=== PATIENT | female | born 1965 | race Caucasian/White ===

== ENCOUNTER → 2019-05-16 14:40 | Outpatient (BNVA) | payer MEDICARE, MEDICAID, SELFPAY | PROVIDERS: Family Provider Physician Assistant Medical; Visit Provider Nurse Practitioner | DX: F33.2 Major depressive disorder, recurrent severe without psychotic features (principal); G47.30 Sleep apnea, unspecified | CPT/HCPCS: 99214 ==

== ENCOUNTER → 2019-07-17 08:19 | Outpatient (BNVA) | payer MEDICARE, MEDICAID, SELFPAY | PROVIDERS: Family Provider Physician Assistant Medical; Visit Provider Nurse Practitioner | DX: F33.2 Major depressive disorder, recurrent severe without psychotic features (principal); G47.30 Sleep apnea, unspecified; F41.1 Generalized anxiety disorder | CPT/HCPCS: 99213 ==

== ENCOUNTER → 2019-07-20 09:20 | Outpatient (BNVA) | payer MEDICARE, MEDICAID, SELFPAY | PROVIDERS: Family Provider Physician Assistant Medical; Visit Provider Social Worker | DX: F33.2 Major depressive disorder, recurrent severe without psychotic features (principal) | CPT/HCPCS: 90791 ==

== ENCOUNTER 2019-09-14 18:10 | Emergency (ER) | payer MEDICARE, MEDICAID, SELFPAY ==
[2019-09-14 18:15] VITALS: PULSE 74; RESP 14; TEMP 35.9; O2SAT 99; BMI 40.7
--- NOTE | 2019-09-14 21:05 | ED_ITS ---
HPI - Dental/Oral General: Chief complaint: Dental/Oral Stated complaint: dental pain Time Seen by Provider: 09/14/19 21:05 History of Present Illness: HPI Narrative: Patient is a 54-year-old female who comes to the ED with dental pain. Patient had dental surgery and had a tooth removed several days ago. Patient currently has a prescription of hydrocodone prescribed by his surgeon and she was also instructed to take ibuprofen as well to help with pain. She says that the hydrocodone and ibuprofen are not addressing the pain enough. She does complain of having some mild nausea. Tooth was removed was in a #17 or #18 in the left lower mandible. She currently rates pain a 10 out of 10. Associated symptoms: Denies fever(s) or odynophagia Review of Systems Const: Denies: fever(s), chills or fatigue Eyes: Denies: change in vision or eye discomfort ENMT: Reports: dental pain; Denies: throat pain, odynophagia, nasal discharge or nasal congestion Card: Denies: chest pain, palpitations, edema, swelling of feet/ankles, dyspnea on exertion or orthopnea Resp: Denies: dyspnea, productive cough or non-productive cough GI: Denies: abdominal pain, nausea, vomiting, diarrhea, constipation or hemat ochezia : Denies: flank pain, dysuria or hematuria Musc: Denies: neck pain, back pain or extremity swelling Skin/Breast: Denies: rash or new lesions Neuro: Denies: headache(s), numbness in extremities or weakness in extremities PFS ED PFSH: Medical History Major depressive disorder, recurrent severe without psychotic features Sleep apnea, unspecified Social History Smoking and tobacco status: never smoked Current gender identity: Female Physical Exam Const: COMMON NORMALS: patient oriented x3 and alert GENERAL APPEARANCE: cooperative and comfortable HENMT: COMMON NORMALS: normocephalic HEAD & SCALP: normocephalic FACE & SINUS: normal facial exam; no edema MOUTH: Normal oral and palatal mucosa present TEETH & GINGIVA: Yes other (Area where tooth was removed had some gum swelling but no erythema or drainage.) THROAT: posterior oropharynx normal and uvula midline Eye: COMMON NORMALS: Equal, round and reactive pupils present PUPIL: Yes Equal, round and reactive pupils present Neck/C-Spine: COMMON NORMALS: supple GENERAL: Yes normal visual inspection Resp: COMMON NORMALS: normal respiratory effort, No retractions, No use of accessory muscles and clear to auscultation bilaterally AUSCULTATION: clear to auscultation bilaterally Cardio: COMMON NORMALS: regular rate, regular rhythm, S1 normal heart sound present, S2 normal heart sound present, No gallops present (Cardio), No clicks present (Cardio), No murmurs present (Cardio) and Peripheral pulses 2+ throughout RATE: regular rate RHYTHM: regular rhythm HEART SOUNDS: S1 normal heart sound present and S2 normal heart sound present PERIPHERAL PULSES: Peripheral pulses 2+ throughout GI: COMMON NORMALS: Normal to inspection, nondistended, normoactive bowel sounds present, Soft to palpation, non-tender and no masses PALPATION: Yes Soft to palpation : COMMON NORMALS: Yes no CVA tenderness BLADDER/KIDNEY EXAM: Yes no CVA tenderness Back/Pelvis: COMMON NORMALS: no CVA tenderness Extremity: COMMON NORMALS: normal to inspection Neuro: COMMON NORMALS: patient oriented x3 and moves all extremities SENSORIUM/ORIENTATION: Yes alert Skin: GENERAL SKIN EXAM: dry skin Course Vital Signs: Vital signs: Vital Signs Temperature 96.7 F L 09/14/19 18:15 Pulse Rate 81 09/14/19 21:44 Respiratory Rate 18 09/14/19 21:44 Blood Pressure 147/62 09/14/19 21:44 Pulse Oximetry 99 09/14/19 21:44 MDM - Dental/Oral MDM Narrative: Medical decision making narrative: Patient is a 54-year-old female comes in the ED with dental pain post oral surgery several days ago where she had a tooth removed. She was prescribed hydrocodone by the surgeon and also instructed to take ibuprofen as well. Patient said current pain medications are not helping enough. Exam showed some swelling of the gums near surgical site but no erythema or drainage. She was given a dose of IM morphine and IM Zofran while here in the ED. I told patient to contact oral surgeon tomorrow to discuss current post surgical pain medication management. She was discharged and told to continue taking her currently prescribed pain meds. Patient understood and agreed with plan. Discharge Plan Discharge Patient Disposition: Home, Self-Care Clinical Impression: Pain following oral surgery Condition: Stable Prescriptions: No Action gabapentin 600 mg tablet 600 mg PO DAILY RF: 0 lisinopril 20 mg tablet 20 mg PO DAILY RF: 0 aspirin [Adult Low Dose Aspirin] 81 mg tablet,delayed release (DR/EC) 81 mg PO DAILY RF: 0 Basaglar JasbirikPen U-100 Insulin 100 unit/mL (3 mL) insulin pen 50 unit SUBCUT DAILY RF: 0 glipizide 10 mg tablet 10 mg PO DAILY RF: 0 Januvia 100 mg tablet 100 mg PO DAILY RF: 0 lovastatin 20 mg tablet 20 mg PO DAILY RF: 0 fluticasone propionate 50 mcg/actuation spray,suspension 2 spray INTRANASAL .QHS Qty: 9.9 RF: 1 doxepin 10 mg capsule 10 mg PO .QHS Qty: 30 RF: 2 topiramate [Topamax] 50 mg tablet 50 mg PO BID Qty: 60 RF: 2 venlafaxine [Effexor XR] 75 mg capsule,extended release 24hr 75 mg PO DAILY Qty: 30 RF: 2 venlafaxine [Effexor XR] 150 mg capsule,extended release 24hr 150 mg PO DAILY Qty: 30 RF: 2 Discharge Orders: Discharge Order (Routine); Ordered 09/14/19 Ordered By: Donovan Castaneda Referrals: Sheldon Cornejo [Primary Care Provider] - Discharge Diet: Regular Discharge Activity: Resume usual activity Activity Restrictions/Additional Instructions: Follow-up with medical provider as directed. Call oral surgeon tomorrow to discuss pain management. Continue taking home meds as prescribed. Return to the ER or your medical provider if condition worsens. Please read and understand discharge instructions. If any questions, please ask. Discharge Date/Time: 09/14/19 21:48 Coding Level of Care Code ED Business Management Specialist for Radha Fwd Exam Comprehensive
[2019-09-14 21:29] VITALS: RESP 18; O2SAT 98
[2019-09-14] MEDS: ondansetron 2 mg/ML SDV 2 mL 4 MG IM (21:29)
[2019-09-14] MEDS: morphine 4 mg/mL SDV 1 mL IM (21:29)
[2019-09-14 21:44] VITALS: BP 147/62; PULSE 81; RESP 18; O2SAT 99
== END 2019-09-14 21:48 | disposition home or self-care (01) ==
PROVIDERS: Emergency Provider Physician Assistant; PCP Physician Assistant Medical
DX: G89.18 Other acute postprocedural pain (principal); Z79.82 Long term (current) use of aspirin
CPT/HCPCS: 12345; 96372; 99281; 99283; J2270; J2405

== ENCOUNTER 2019-10-15 12:14 | Emergency (ER) | payer MEDICARE, MEDICAID, SELFPAY ==
[2019-10-15 12:23] VITALS: BP 142/72; PULSE 83; RESP 14; TEMP 36.2; O2SAT 94; BMI 40.7
[2019-10-15 13:22] VITALS: O2SAT 97
--- NOTE | 2019-10-15 13:38 | XRR_ITS ---
PROCEDURE INFORMATION: Exam: XR Right Knee Exam date and time: 10/15/2019 1:54 PM Age: 54 years old Clinical indication: Injury or trauma; Fall; Initial encounter; Blunt trauma; Knee; Right; Additional info: Fall/injury TECHNIQUE: Imaging protocol: XR Right knee. Views: 3 views. COMPARISON: No relevant prior studies available. FINDINGS: Bones/joints: 4 mm osseous sliver in the soft tissues anterior to the patella may chronic in nature or represent a small avulsion fracture. Soft tissues: Normal. XR/XR knee RT 3V* [id number] IMPRESSION: 4 mm osseous sliver in the soft tissues anterior to the patella may chronic in nature or represent a small avulsion fracture.
--- NOTE | 2019-10-15 13:38 | XRR_ITS ---
PROCEDURE INFORMATION: Exam: XR Left Femur Exam date and time: 10/15/2019 1:39 PM Age: 54 years old Clinical indication: Injury or trauma; Fall; Initial encounter; Blunt trauma; Thigh or upper leg; Left; Additional info: Fall/injury TECHNIQUE: Imaging protocol: XR Left femur. Views: 2 views. COMPARISON: No relevant prior studies available. FINDINGS: Bones/joints: Unremarkable. No acute fracture. Soft tissues: Unremarkable. XR/XR femur LT min 2V* [id number] IMPRESSION: No acute findings.
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
[2019-10-15 14:43] VITALS: BP 142/70; PULSE 80; O2SAT 92
== END 2019-10-15 14:43 | disposition home or self-care (01) ==
PROVIDERS: Emergency Provider Emergency Medicine; PCP Physician Assistant Medical
DX: S70.12XA Contusion of left thigh, initial encounter (principal); Z79.82 Long term (current) use of aspirin; Z79.4 Long term (current) use of insulin; T22.112A Burn of first degree of left forearm, initial encounter; X08.8XXA Exposure to other specified smoke, fire and flames, initial encounter
CPT/HCPCS: 12345; 73552; 73562; 99281; 99283

== ENCOUNTER → 2019-12-05 07:35 | Outpatient (BNVA) | payer MEDICAID, SELFPAY ==
[2019-12-01 11:41] VITALS: BP 142/70; BMI 40.7
== END ==
PROVIDERS: PCP Physician Assistant Medical; Visit Provider Nurse Practitioner
DX: G47.30 Sleep apnea, unspecified (principal); F33.2 Major depressive disorder, recurrent severe without psychotic features
CPT/HCPCS: 99213

== ENCOUNTER 2020-01-29 11:05 | Emergency (ER) | payer MEDICARE, MEDICAID, SELFPAY ==
[2019-12-01 11:41] VITALS: BP 142/70; BMI 40.7
[2020-01-29 11:14] VITALS: BP 139/85; PULSE 82; RESP 14; TEMP 36.9; O2SAT 96; BMI 40.7
--- NOTE | 2020-01-29 12:27 | ED_ITS ---
HPI - Female Genitourinary General: Chief complaint: Urogenital-Female Stated complaint: UTI S/S Time Seen by Provider: 01/29/20 12:12 History of Present Illness: HPI Narrative: Pleasant 54-year-old female patient presents to the emergency department with complaints of dysuria and lower pelvic pain x2 weeks. Primary care provider Dr. Cornejo in [place]. She has not received recent antibiotics or treatment for this complaint. Menopause in 2007, denies abdominal surgery history. She denies abnormal vaginal bleeding or discharge. MD elicited complaint: dysuria, UTI and pelvic pain Pertinent past history: diabetes Onset (ago): week(s) (2) Location of symptoms: suprapubic Severity: moderate Female Urogenital Radiation: Suprapubic Severity scale (1-10): 5 Quality of pain: cramping, dull, burning and aching Consistency: constant and progressively worsening Vaginal discharge: none Vaginal bleeding: none Urinary symptoms: Dysuria, Frequency and Urgency Exacerbating factors: none Relieving factors: none Associated symptoms: Reports fevers/chills and nausea; Deny abdominal pain or headache(s) Treatment prior to arrival: none Patient : No Review of Systems General: Reports: 10 or more systems reviewed and unremarkable except in HPI and below Const: Denies: fever(s), chills or diaphoresis Eyes: Denies: blurry vision or eye redness ENMT: Denies: throat pain, dental pain or disequilibrium Card: Denies: chest pain, palpitations or irregular heart rhythm Resp: Denies: dyspnea, productive cough, non-productive cough or wheezing GI: Reports: nausea; Denies: abdominal pain, vomiting, diarrhea, constipation or pain on defecation : Reports: dysuria, urinary frequency and urinary urgency; Denies: flank pain, difficulty voiding, hematuria, genital lesions or vaginal odor Musc: Denies: neck pain or back pain Skin/Breast: Denies: rash or pruritus Neuro: Denies: headache(s), weakness in extremities or behavioral changes Psych: Denies: anxiety or depression Brian/Lymph: Denies: easy bruising PFS ED PFSH: Medical History (Updated 01/29/20 @ 13:22 by ELIZABETH Nascimento) Major depressive disorder, recurrent severe without psychotic features Sleep apnea, unspecified Family History Grandmother Hypertension Hyperlipidemia Diabetes Grandfather Hypertension Sister Hypertension Father Hypertension Mother Cancer Social History (Updated 10/19/19 @ 13:33 by Ibis Hunt LPN) Smoking and tobacco status: never smoked Alcohol intake: current Alcohol intake frequency: holidays/special occasions only Marital status: Current gender identity: Female Physical Exam Const: COMMON NORMALS: no acute distress, patient oriented x3, healthy appearing and alert GENERAL APPEARANCE: cooperative, comfortable and well hydrated HENMT: COMMON NORMALS: normocephalic, Normal external nose present and moist oral mucous membranes HEAD & SCALP: normocephalic NOSE: Normal external nose present Eye: COMMON NORMALS: Equal, round and reactive pupils present and EOMs intact bilaterally GENERAL EYE: appearance normal, both eyes and all related structures PUPIL: Yes Equal, round and reactive pupils present Neck/C-Spine: COMMON NORMALS: full ROM and no lymphadenopathy GENERAL: Yes normal visual inspection and Yes trachea midline CERVICAL SPINE: Yes cervical ROM normal Lymph: LYMPHATIC: no lymphadenopathy noted Chest: COMMONS NORMALS: normal inspection of the chest Resp: COMMON NORMALS: normal respiratory effort, No use of accessory muscles and clear to auscultation bilaterally EFFORT & INSPECTION: Yes able to speak in complete sentences AUSCULTATION: clear to auscultation bilaterally Cardio: COMMON NORMALS: regular rhythm, S1 normal heart sound present, S2 normal heart sound present and Peripheral pulses 2+ throughout RHYTHM: regular rhythm HEART SOUNDS: S1 normal heart sound present and S2 normal heart sound present PERIPHERAL PULSES: Peripheral pulses 2+ throughout GI: COMMON NORMALS: Normal to inspection, nondistended, normoactive bowel sounds present, Soft to palpation and non-tender INSPECTION: Yes normal to inspection PALPATION: Yes Soft to palpation and Yes Tenderness to palpation present (GI) (lower pubis central - over the bladder) : COMMON NORMALS: Yes no CVA tenderness BLADDER/KIDNEY EXAM: Yes no CVA tenderness Back/Pelvis: COMMON NORMALS: no CVA tenderness and thoracic and lumbar spine normal to inspection Extremity: COMMON NORMALS: normal to inspection and capillary refill normal Neuro: COMMON NORMALS: patient oriented x3 and no focal motor deficits SENSORIUM/ORIENTATION: Yes alert Psych: COMMON NORMALS: mental status grossly normal, Normal thought process present and cooperative ACTIVITY/MOTOR BEHAVIOR: Yes appropriate eye contact THOUGHT PROCESS: Normal thought process present Skin: COMMON NORMALS: no rashes or lesions noted and turgor normal GENERAL SKIN EXAM: no rashes or lesions noted and turgor normal Course Vital Signs: Vital signs: Vital Signs Temperature 98.5 F 01/29/20 11:14 Pulse Rate 80 01/29/20 14:07 Respiratory Rate 18 01/29/20 14:07 Blood Pressure 132/78 01/29/20 14:07 Pulse Oximetry 97 01/29/20 14:07 MDM - Female Lab Data: Labs: Lab Results 01/29/20 01/29/20 01/29/20 Range/Units 12:30 12:30 12:30 WBC 10.4 H (4.0-10.0) 10^3/ uL RBC 4.86 (4.1-5.3) 10^6/u L Hgb 14.0 (11.5-15.3) g/dL Hct 43.4 (37.0-47.0) % MCV 89.3 (81-99) fL MCH 28.8 (28.0-34.0) pg MCHC 32.3 (30.0-36.0) g/dL RDW 13.9 (12.1-15.1) % Plt Count 323 (130-400) 10^3/c mm MPV 9.9 (7.4-10.4) fL Neut % (Auto) 68.8 % Lymph % (Auto) 23.5 % Andrews % (Auto) 4.4 % Eos % (Auto) 2.6 % Baso % (Auto) 0.4 % Neut # (Auto) 7.12 (1.8-7.7) 10^3/u L Lymph # (Auto) 2.4 (0.8-4.8) 10^3/u L Andrews # (Auto) 0.5 (0.2-0.9) 10^3/u L Eos # (Auto) 0.3 (0.0-0.8) 10^3/u L Baso # (Auto) 0.0 (0.0-0.1) 10^3/u L Nucleated RBC % (a uto) 0 % Nucleated RBCs # 0.0 /100WBC Sodium 135 L (136-145) mmol/L Potassium 4.9 (3.5-5.1) mmol/L Chloride 97 L (98-107) mmol/L Carbon Dioxide 26 (22-29) mmol/L Anion Gap 16.9 (5-19) BUN 21 H (6-20) mg/dL Creatinine 1.0 H (0.5-0.9) mg/dL GFR Calculation 57.6 L (90-130) mL/min Glucose 349 H (65-115) mg/dL Calculated Osmolal ity 297 H (285-295) mOsm/k g Calcium 9.3 (8.5-10.5) mg/dL Total Bilirubin 0.3 (0.15-1.2) mg/dL AST 15 (0-32) U/L ALT 14 (0-33) U/L Alkaline Phosphata se 121 H (35-105) IU/L Total Protein 7.4 (6.6-8.7) g/dL Albumin 3.9 (3.5-5.2) g/dL Globulin 3.5 (1.3-4.6) g/dL Urine Color Yellow (Yellow) Urine Appearance Cloudy (CLEAR) Urine pH 5 (5-7) Ur Specific Gravit y 1.020 (1.005-1.030) Urine Protein Neg (Negative) Urine Glucose (UA) 4+ H (Normal) Urine Ketones Negative (Negative) Urine Blood Neg (Negative) Urine Nitrate Negative (Negative) Urine Bilirubin Neg (Negative) Urine Urobilinogen Norm (Negative) mg/dL Ur Leukocyte Krystal ase Negative (Negative) Urine RBC 0-4 H (0-2) /hpf Urine WBC 40-55 H (0-5) /hpf Ur Squamous Epith Cells 0-4 H (0-5) /hpf Amorphous Sediment Not Reportable Urine Bacteria 1+ H (NONE) /hpf Urine Yeast Trace /hpf Discharge Plan Discharge Patient Disposition: Home Clinical Impression: UTI (urinary tract infection) Qualifiers: Urinary tract infection type: acute cystitis Hematuria presence: with hematuria Qualified Code(s): N30.01 - Acute cystitis with hematuria Condition: Stable Prescriptions: New Augmentin 875-125 mg tablet 1 tab PO Q12H Qty: 14 RF: 0 Pyridium 200 mg tablet 200 mg PO Q8H PRN (Reason: pain) Qty: 6 RF: 0 No Action gabapentin 600 mg tablet 600 mg PO BEDTIME RF: 0 lisinopril 20 mg tablet 10 mg PO DAILY RF: 0 doxepin 10 mg capsule 10 mg PO BEDTIME Qty: 30 RF: 2 topiramate [Topamax] 50 mg tablet 50 mg PO BID Qty: 60 RF: 2 venlafaxine [Effexor XR] 75 mg capsule,extended release 24hr 75 mg PO DAILY Qty: 30 RF: 2 venlafaxine [Effexor XR] 150 mg capsule,extended release 24hr 150 mg PO DAILY Qty: 30 RF: 2 Basaglar KwikPen U-100 Insulin 100 unit/mL (3 mL) insulin pen 50 unit SUBCUT BEDTIME RF: 0 Januvia 100 mg tablet 100 mg PO DAILY RF: 0 lovastatin 20 mg tablet 20 mg PO DAILY RF: 0 glipizide 10 mg tablet extended release 24hr 10 mg PO DAILY RF: 0 meclizine 25 mg Tablet 25 mg PO TID PRN (Reason: unknown) RF: 0 gabapentin 300 mg Capsule 300 mg PO QAM RF: 0 fluticasone propionate 50 mcg/actuation spray,suspension 2 spray INTRANASAL BEDTIME RF: 0 Discharge Orders: Discharge Order (Routine); Ordered 01/29/20 Ordered By: Julia Chong Referrals: Sheldon Cornejo [Primary Care Provider] - Discharge Diet: Usual diet Discharge Activity: Resume usual activity Patient Instructions: Urinary Tract Infection in Women (ED) Activity Restrictions/Additional Instructions: Take Augmentin until all gone, take with food to avoid stomach upset Follow-up with your primary care provider in 10 days to repeat urinalysis to ensure urinary tract infection has resolved Return to emergency department if you develop vomiting, nausea or fever Drink lots of fluids as this will help with hydration Take antibiotics until all gone, even if better, return of infection can occur if antibiotics not completed. Coding Level of Care Code ED Foundry Patternmaker for Radha Fwd Exam Comprehensive
[2020-01-29 12:43] LABS: Basophils % 0.4 %; Eosinophils # 0.3 10^3/uL (0.0-0.8); Eosinophils % 2.6 %; Hematocrit 43.4 % (37.0-47.0); Lymphocytes # 2.4 10^3/uL (0.8-4.8); Lymphocytes % 23.5 %; Mean Corpuscular HGB Conc 32.3 g/dL (30.0-36.0); Mean Corpuscular Hemoglobin 28.8 pg (28.0-34.0); Mean Corpuscular Volume 89.3 fL (81-99); Mean Platelet Volume 9.9 fL (7.4-10.4); Monocytes # 0.5 10^3/uL (0.2-0.9); Monocytes % 4.4 %; Neutrophils # 7.12 10^3/uL (1.8-7.7); Neutrophils % 68.8 %; Nucleated Red Blood Cells % 0 %; Platelet Count 323 10^3/cmm (130-400); Red Blood Count 4.86 10^6/uL (4.1-5.3); Red Cell Distribution Width 13.9 % (12.1-15.1); White Blood Count 10.4 10^3/uL (4.0-10.0)
[2020-01-29 12:54] LABS: Bilirubin Urine Neg (Negative); Blood Urine Neg (Negative); Glucose Urine UA 4+ (Normal); Ketones Urine Negative (Negative); Leukocyte Esterase Urine Negative (Negative); Nitrate Urine Negative (Negative); Protein Urine Neg (Negative); Urine Appearance Cloudy (CLEAR); Urine Color Yellow (Yellow); Urobilinogen Urine Norm (Negative); pH Urine 5 (5-7)
[2020-01-29 12:55] LABS: Add Urine Microscopic? YES
[2020-01-29 13:14] LABS: Alanine Aminotransferase 14 U/L (0-33); Albumin Level 3.9 g/dL (3.5-5.2); Alkaline Phosphatase 121 IU/L (35-105); Blood Urea Nitrogen 21 mg/dL (6-20); Calcium 9.3 mg/dL (8.5-10.5); Carbon Dioxide 26 mmol/L (22-29); Chloride 97 mmol/L (98-107); Globulin 3.5 g/dL (1.3-4.6); Glomerular Filtration Rate 57.6 mL/min (90-130); Glucose 349 mg/dL (65-115); Osmolality Calculated 297 mOsm/kg (285-295); Sodium 135 mmol/L (136-145); Total Bilirubin 0.3 mg/dL (0.15-1.2); Total Protein 7.4 g/dL (6.6-8.7)
[2020-01-29 13:15] LABS: RBC Urine 0-4 /hpf (0-2)
[2020-01-29 13:16] LABS: Bacteria Urine 1+ /hpf; Squamous Epithelial Cell Urine 0-4 /hpf (0-5); WBC Urine 40-55 /hpf (0-5)
[2020-01-29 13:17] LABS: Add Urine Culture? Yes
[2020-01-29 13:20] LABS: Anion Gap 16.9 (5-19); Aspartate Amino Transferase 15 U/L (0-32); Potassium 4.9 mmol/L (3.5-5.1)
[2020-01-29 14:07] VITALS: BP 132/78; PULSE 80; RESP 18; O2SAT 97
== END 2020-01-29 14:08 | disposition home or self-care (01) ==
PROVIDERS: Emergency Provider Nurse Practitioner Family; PCP Physician Assistant Medical
DX: N30.01 Acute cystitis with hematuria (principal); Z79.84 Long term (current) use of oral hypoglycemic drugs
CPT/HCPCS: 12345; 80053; 81001; 85025; 87077; 87086; 87186; 99283

== ENCOUNTER 2020-02-03 10:52 | Emergency (ER) | payer MEDICARE, MEDICAID, SELFPAY ==
[2019-12-01 11:41] VITALS: BP 142/70; BMI 40.7
[2020-02-03 10:56] VITALS: BP 177/112; PULSE 117; RESP 18; TEMP 36.7; O2SAT 95; BMI 40.7
--- NOTE | 2020-02-03 11:14 | ED_ITS ---
HPI - Female Genitourinary General: Chief complaint: Urogenital-Female Stated complaint: lower abd pain, n/v, UTI complications Time Seen by Provider: 02/03/20 11:04 History of Present Illness: HPI Narrative: Patient complains that her UTIs not respond to the present antibiotics. MD elicited complaint: UTI Pertinent past history: recurrent UTIs Onset (ago): day(s) Severity: mild Female Urogenital Radiation: Non-Radiating Urinary symptoms: Difficulty Urinating and Urgency Relieving factors: none Associated symptoms: Reports no associated symptoms; Deny abdominal pain, headache(s) or nausea Review of Systems Const: Denies: fever(s), chills or body aches Eyes: Denies: change in vision or blurry vision ENMT: Denies: throat pain or nasal congestion Card: Denies: chest pain or dyspnea on exertion Resp: Denies: dyspnea, productive cough or non-productive cough GI: Denies: abdominal pain, nausea or vomiting : Reports: dysuria, urinary frequency, urinary urgency and urinary hesitancy Musc: Denies: extremity pain Skin/Breast: Denies: rash Neuro: Denies: headache(s) Psych: Denies: anxiety or depression Brian/Lymph: Denies: easy bruising PFSH ED PFSH: Medical History (Updated 02/03/20 @ 14:51 by CRISTOBAL Dowling) Major depressive disorder, recurrent severe without psychotic features Sleep apnea, unspecified Family History Grandmother Hypertension Hyperlipidemia Diabetes Grandfather Hypertension Sister Hypertension Father Hypertension Mother Cancer Social History (Updated 10/19/19 @ 13:33 by Ibis Hunt LPN) Smoking and tobacco status: never smoked Alcohol intake: current Alcohol intake frequency: holidays/special occasions only Marital status: Current gender identity: Female Physical Exam Const: COMMON NORMALS: no acute distress, average body habitus and patient oriented x3 HENMT: COMMON NORMALS: normocephalic HEAD & SCALP: normal to inspection and normocephalic FACE & SINUS: normal facial exam Eye: COMMON NORMALS: conjunctivae normal GENERAL EYE: appearance normal, both eyes and all related structures CONJUNCTIVA: Yes conjunctivae normal Neck/C-Spine: COMMON NORMALS: no JVD Chest: COMMONS NORMALS: normal inspection of the chest Resp: COMMON NORMALS: normal respiratory effort and clear to auscultation bilaterally AUSCULTATION: clear to auscultation bilaterally Cardio: COMMON NORMALS: no JVD, regular rate and regular rhythm RATE: regular rate RHYTHM: regular rhythm GI: COMMON NORMALS: Normal to inspection, nondistended, normoactive bowel sounds present Extremity: COMMON NORMALS: normal to inspection and full ROM Neuro: COMMON NORMALS: patient oriented x3 Course Vital Signs: Vital signs: Vital Signs Temperature 98.0 F 02/03/20 10:56 Pulse Rate 117 H 02/03/20 10:56 Respiratory Rate 18 02/03/20 10:56 Blood Pressure 177/112 02/03/20 10:56 Pulse Oximetry 95 02/03/20 10:56 MDM - Female MDM Narrative: Medical decision making narrative: Discussed case with Dr. Montero. Discussed with patient the need to check sugars twice a day and follow-up primary care provider. talked about diet exercise medication with patient Lab Data: Labs: Lab Results 02/03/20 02/03/20 02/03/20 Range/Units 11:32 11:32 11:32 WBC 12.2 H (4.0-10.0) 10^3/ uL RBC 4.48 (4.1-5.3) 10^6/u L Hgb 13.0 (11.5-15.3) g/dL Hct 40.0 (37.0-47.0) % MCV 89.3 (81-99) fL MCH 29.0 (28.0-34.0) pg MCHC 32.5 (30.0-36.0) g/dL RDW 13.8 (12.1-15.1) % Plt Count 319 (130-400) 10^3/c mm MPV 10.2 (7.4-10.4) fL Neut % (Auto) 71.3 % Lymph % (Auto) 21.5 % Millard % (Auto) 3.9 % Eos % (Auto) 2.4 % Baso % (Auto) 0.3 % Neut # (Auto) 8.68 H (1.8-7.7) 10^3/u L Lymph # (Auto) 2.6 (0.8-4.8) 10^3/u L Millard # (Auto) 0.5 (0.2-0.9) 10^3/u L Eos # (Auto) 0.3 (0.0-0.8) 10^3/u L Baso # (Auto) 0.0 (0.0-0.1) 10^3/u L Nucleated RBC % (a uto) 0 % Nucleated RBCs # 0.0 /100WBC Specimen Type Sample Site ABG pH (7.35-7.45) ABG pCO2 (35-45) mmHg ABG pO2 (80.0-100.0) mmH g ABG HCO3 (22-26) mmol/L ABG Base Excess (-2.0-2.0) mmol/ L Chip Test Hematocrit (37-47) % O2 Delivery Device Network Support Manager ID Sodium 131 L (136-145) mmol/L Potassium 4.3 (3.5-5.1) mmol/L Chloride 94 L (98-107) mmol/L Carbon Dioxide 23 (22-29) mmol/L Anion Gap 18.3 (5-19) BUN 25 H (6-20) mg/dL Creatinine 1.5 H (0.5-0.9) mg/dL GFR Calculation 36.1 L (90-130) mL/min Glucose 564 H* (65-115) mg/dL POC Glucose (70-110) mg/dL Calculated Osmolal ity 302 H (285-295) mOsm/k g Calcium 9.1 (8.5-10.5) mg/dL Total Bilirubin 0.2 (0.15-1.2) mg/dL AST 12 (0-32) U/L ALT 12 (0-33) U/L Alkaline Phosphata se 129 H (35-105) IU/L Total Protein 6.9 (6.6-8.7) g/dL Albumin 3.6 (3.5-5.2) g/dL Globulin 3.3 (1.3-4.6) g/dL Urine Color Yellow (Yellow) Urine Appearance Clear (CLEAR) Urine pH 5 (5-7) Ur Specific Gravit y 1.015 (1.005-1.030) Urine Protein Neg (Negative) Urine Glucose (UA) 4+ H (Normal) Urine Ketones Negative (Negative) Urine Blood Neg (Negative) Urine Nitrate Negative (Negative) Urine Bilirubin Neg (Negative) Urine Urobilinogen Norm (Negative) mg/dL Ur Leukocyte Krystal ase Negative (Negative) Serum Ketones (Negative) 02/03/20 02/03/20 02/03/20 Range/Units 11:32 13:02 13:36 WBC (4.0-10.0) 10^3/ uL RBC (4.1-5.3) 10^6/u L Hgb (11.5-15.3) g/dL Hct (37.0-47.0) % MCV (81-99) fL MCH (28.0-34.0) pg MCHC (30.0-36.0) g/dL RDW (12.1-15.1) % Plt Count (130-400) 10^3/c mm MPV (7.4-10.4) fL Neut % (Auto) % Lymph % (Auto) % Millard % (Auto) % Eos % (Auto) % Baso % (Auto) % Neut # (Auto) (1.8-7.7) 10^3/u L Lymph # (Auto) (0.8-4.8) 10^3/u L Millard # (Auto) (0.2-0.9) 10^3/u L Eos # (Auto) (0.0-0.8) 10^3/u L Baso # (Auto) (0.0-0.1) 10^3/u L Nucleated RBC % (a uto) % Nucleated RBCs # /100WBC Specimen Type Arterial Sample Site Radial, left ABG pH 7.38 (7.35-7.45) ABG pCO2 40.9 (35-45) mmHg ABG pO2 92.2 (80.0-100.0) mmH g ABG HCO3 24.2 (22-26) mmol/L ABG Base Excess -0.9 (-2.0-2.0) mmol/ L Chip Test Pos Hematocrit 38.7 (37-47) % O2 Delivery Device Nc Network Support Manager ID Gd Sodium (136-145) mmol/L Potassium (3.5-5.1) mmol/L Chloride (98-107) mmol/L Carbon Dioxide (22-29) mmol/L Anion Gap (5-19) BUN (6-20) mg/dL Creatinine (0.5-0.9) mg/dL GFR Calculation (90-130) mL/min Glucose (65-115) mg/dL POC Glucose 440 (70-110) mg/dL Calculated Osmolal ity (285-295) mOsm/k g Calcium (8.5-10.5) mg/dL Total Bilirubin (0.15-1.2) mg/dL AST (0-32) U/L ALT (0-33) U/L Alkaline Phosphata se (35-105) IU/L Total Protein (6.6-8.7) g/dL Albumin (3.5-5.2) g/dL Globulin (1.3-4.6) g/dL Urine Color (Yellow) Urine Appearance (CLEAR) Urine pH (5-7) Ur Specific Gravit y (1.005-1.030) Urine Protein (Negative) Urine Glucose (UA) (Normal) Urine Ketones (Negative) Urine Blood (Negative) Urine Nitrate (Negative) Urine Bilirubin (Negative) Urine Urobilinogen (Negative) mg/dL Ur Leukocyte Krystal ase (Negative) Serum Ketones Negative (Negative) 02/03/20 Range/Units 14:54 WBC (4.0-10.0) 10^3/ uL RBC (4.1-5.3) 10^6/u L Hgb (11.5-15.3) g/dL Hct (37.0-47.0) % MCV (81-99) fL MCH (28.0-34.0) pg MCHC (30.0-36.0) g/dL RDW (12.1-15.1) % Plt Count (130-400) 10^3/c mm MPV (7.4-10.4) fL Neut % (Auto) % Lymph % (Auto) % Millard % (Auto) % Eos % (Auto) % Baso % (Auto) % Neut # (Auto) (1.8-7.7) 10^3/u L Lymph # (Auto) (0.8-4.8) 10^3/u L Millard # (Auto) (0.2-0.9) 10^3/u L Eos # (Auto) (0.0-0.8) 10^3/u L Baso # (Auto) (0.0-0.1) 10^3/u L Nucleated RBC % (a uto) % Nucleated RBCs # /100WBC Specimen Type Sample Site ABG pH (7.35-7.45) ABG pCO2 (35-45) mmHg ABG pO2 (80.0-100.0) mmH g ABG HCO3 (22-26) mmol/L ABG Base Excess (-2.0-2.0) mmol/ L Chip Test Hematocrit (37-47) % O2 Delivery Device Network Support Manager ID Sodium (136-145) mmol/L Potassium (3.5-5.1) mmol/L Chloride (98-107) mmol/L Carbon Dioxide (22-29) mmol/L Anion Gap (5-19) BUN (6-20) mg/dL Creatinine (0.5-0.9) mg/dL GFR Calculation (90-130) mL/min Glucose (65-115) mg/dL POC Glucose 315 (70-110) mg/dL Calculated Osmolal ity (285-295) mOsm/k g Calcium (8.5-10.5) mg/dL Total Bilirubin (0.15-1.2) mg/dL AST (0-32) U/L ALT (0-33) U/L Alkaline Phosphata se (35-105) IU/L Total Protein (6.6-8.7) g/dL Albumin (3.5-5.2) g/dL Globulin (1.3-4.6) g/dL Urine Color (Yellow) Urine Appearance (CLEAR) Urine pH (5-7) Ur Specific Gravit y (1.005-1.030) Urine Protein (Negative) Urine Glucose (UA) (Normal) Urine Ketones (Negative) Urine Blood (Negative) Urine Nitrate (Negative) Urine Bilirubin (Negative) Urine Urobilinogen (Negative) mg/dL Ur Leukocyte Krystal ase (Negative) Serum Ketones (Negative) Discharge Plan Discharge Patient Disposition: Home Clinical Impression: Hyperglycemia Condition: Stable Prescriptions: No Action gabapentin 600 mg tablet 600 mg PO BEDTIME RF: 0 lisinopril 20 mg tablet 10 mg PO DAILY RF: 0 doxepin 10 mg capsule 10 mg PO BEDTIME Qty: 30 RF: 2 topiramate [Topamax] 50 mg tablet 50 mg PO BID Qty: 60 RF: 2 venlafaxine [Effexor XR] 75 mg capsule,extended release 24hr 75 mg PO DAILY Qty: 30 RF: 2 venlafaxine [Effexor XR] 150 mg capsule,extended release 24hr 150 mg PO DAILY Qty: 30 RF: 2 Dominiqueaglshey ChenPen U-100 Insulin 100 unit/mL (3 mL) insulin pen 50 unit SUBCUT BEDTIME RF: 0 Januvia 100 mg tablet 100 mg PO DAILY RF: 0 lovastatin 20 mg tablet 20 mg PO DAILY RF: 0 Augmentin 875-125 mg tablet 1 tab PO Q12H Qty: 14 RF: 0 Pyridium 200 mg tablet 200 mg PO Q8H PRN (Reason: pain) Qty: 6 RF: 0 glipizide 10 mg tablet extended release 24hr 10 mg PO DAILY RF: 0 meclizine 25 mg Tablet 25 mg PO TID PRN (Reason: unknown) RF: 0 gabapentin 300 mg Capsule 300 mg PO QAM RF: 0 fluticasone propionate 50 mcg/actuation spray,suspension 2 spray INTRANASAL BEDTIME RF: 0 Discharge Orders: Discharge Order (Routine); Ordered 02/03/20 Ordered By: Angel Rodríguez Referrals: Sheldon Cornejo [Primary Care Provider] - Discharge Diet: As Directed and Diabetic Discharge Activity: Resume usual activity Patient Instructions: How to Check Your Blood Sugar (ED), Diabetes Mellitus Type 2 in Adults (ED), Meal Planning with Diabetes Exchanges (GEN) Activity Restrictions/Additional Instructions: Follow-up with medical provider as directed. Take medications as prescribed. Return to the ER or your medical provider if condition worsens. Please read and understand discharge instructions. If any questions ask please. Check your blood sugars at least twice a day write those readings down and report them back to Elio Toussaint in 1 to 2 weeks decrease starches sugars in your diet Coding Level of Care Code ED Electro Optics Engineer for Chg Fwd Exam Comprehensive
[2020-02-03 11:40] LABS: Add Urine Microscopic? NO
[2020-02-03 11:44] LABS: Bilirubin Urine Neg (Negative); Blood Urine Neg (Negative); Glucose Urine UA 4+ (Normal); Ketones Urine Negative (Negative); Leukocyte Esterase Urine Negative (Negative); Nitrate Urine Negative (Negative); Protein Urine Neg (Negative); Specific Gravity, Urine 1.015 (1.005-1.030); Urine Appearance Clear (CLEAR); Urine Color Yellow (Yellow); Urobilinogen Urine Norm (Negative); pH Urine 5 (5-7)
[2020-02-03 11:45] LABS: Basophils % 0.3 %; Eosinophils # 0.3 10^3/uL (0.0-0.8); Eosinophils % 2.4 %; Lymphocytes # 2.6 10^3/uL (0.8-4.8); Lymphocytes % 21.5 %; Mean Corpuscular HGB Conc 32.5 g/dL (30.0-36.0); Mean Corpuscular Volume 89.3 fL (81-99); Mean Platelet Volume 10.2 fL (7.4-10.4); Monocytes # 0.5 10^3/uL (0.2-0.9); Monocytes % 3.9 %; Neutrophils # 8.68 10^3/uL (1.8-7.7); Neutrophils % 71.3 %; Nucleated Red Blood Cells % 0 %; Platelet Count 319 10^3/cmm (130-400); Red Blood Count 4.48 10^6/uL (4.1-5.3); Red Cell Distribution Width 13.8 % (12.1-15.1); White Blood Count 12.2 10^3/uL (4.0-10.0)
[2020-02-03] MEDS: ondansetron 2 mg/ML SDV 2 mL 4 MG IVP (11:46)
[2020-02-03] MEDS: sodium chloride 0.9% 1,000 ML 999 ML IV ×2 (11:47→13:10)
[2020-02-03] MEDS: levofloxacin-dextrose 5 % 500 MG/100 ML PREMIX 100 MG IV (11:47)
[2020-02-03 12:03] LABS: Alanine Aminotransferase 12 U/L (0-33); Albumin Level 3.6 g/dL (3.5-5.2); Alkaline Phosphatase 129 IU/L (35-105); Anion Gap 18.3 (5-19); Aspartate Amino Transferase 12 U/L (0-32); Blood Urea Nitrogen 25 mg/dL (6-20); Calcium 9.1 mg/dL (8.5-10.5); Carbon Dioxide 23 mmol/L (22-29); Chloride 94 mmol/L (98-107); Globulin 3.3 g/dL (1.3-4.6); Glomerular Filtration Rate 36.1 mL/min (90-130); Osmolality Calculated 302 mOsm/kg (285-295); Potassium 4.3 mmol/L (3.5-5.1); Sodium 131 mmol/L (136-145); Total Bilirubin 0.2 mg/dL (0.15-1.2); Total Protein 6.9 g/dL (6.6-8.7)
[2020-02-03 12:20] LABS: Glucose 564 mg/dL (65-115)
[2020-02-03] MEDS: insulin regular-human 100 units/1 mL 10 UNIT IVP ×2 (12:32→13:50)
[2020-02-03 13:16] LABS: Ketone (Acetest) Serum Negative (Negative)
[2020-02-03 13:19] LABS: ABG PCO2 40.9 mmHg (35-45); ABG PH Result 7.38 (7.35-7.45); Arterial Blood Gas Hematocrit 38.7 % (37-47); Base Excess ABG -0.9 mmol/L (-2.0-2.0); Blood Gas Allen Test Pos; Blood Gas Operator Identificat GD; Blood Gas Sample Site Radial, left; Blood Gas Sample Type Arterial; HCO3 ABG 24.2 mmol/L (22-26); Oxygen Device NC; PO2 ABG 92.2 mmHg (80.0-100.0)
[2020-02-03 13:41] LABS: Glucose Point of Care 440 mg/dL (70-110)
[2020-02-03 14:58] LABS: Glucose Point of Care 315 mg/dL (70-110)
[2020-02-03 15:12] VITALS: BP 167/101; PULSE 81; RESP 20; O2SAT 97
== END 2020-02-03 15:14 | disposition home or self-care (01) ==
PROVIDERS: Emergency Provider Nurse Practitioner Family; PCP Physician Assistant Medical
DX: R73.9 Hyperglycemia, unspecified (principal)
CPT/HCPCS: 12345; 36416; 36600; 80053; 81003; 82009; 82803; 82962; 85025; 96361; 96365; 96375; 96376; 99282; 99283; J1815; J1956; J2405; J7030